=== PATIENT | male | born 1995 | race Caucasian/White ===

== ENCOUNTER → 2019-07-06 09:51 | Outpatient (BNVA) | payer BC, SELFPAY | PROVIDERS: Family Provider Family Medicine; PCP Nurse Practitioner; Visit Provider Social Worker | DX: F90.2 Attention-deficit hyperactivity disorder, combined type (principal) | CPT/HCPCS: 90791 ==

== ENCOUNTER → 2019-07-15 10:53 | Outpatient (BNVA) | payer BC, SELFPAY | PROVIDERS: Family Provider Family Medicine; Visit Provider Psychiatry & Neurology Psychiatry | DX: F41.9 Anxiety disorder, unspecified (principal); F90.2 Attention-deficit hyperactivity disorder, combined type; E66.9 Obesity, unspecified; F17.201 Nicotine dependence, unspecified, in remission; E63.9 Nutritional deficiency, unspecified | CPT/HCPCS: 99205 ==

== ENCOUNTER → 2019-08-16 07:43 | Outpatient (BNVA) | payer BC, SELFPAY | PROVIDERS: Family Provider Family Medicine; Visit Provider Nurse Practitioner Psychiatric/Mental Health | DX: F90.2 Attention-deficit hyperactivity disorder, combined type (principal); F41.9 Anxiety disorder, unspecified | CPT/HCPCS: 99212 ==

== ENCOUNTER → 2019-09-13 08:00 | Outpatient (BNVA) | payer BC, SELFPAY | PROVIDERS: Family Provider Family Medicine; Visit Provider Nurse Practitioner Psychiatric/Mental Health | DX: F90.2 Attention-deficit hyperactivity disorder, combined type (principal); F41.9 Anxiety disorder, unspecified; F25.0 Schizoaffective disorder, bipolar type | CPT/HCPCS: 99212 ==

== ENCOUNTER → 2021-01-15 16:15 | Outpatient (BNVA) | payer BC, SELFPAY | PROVIDERS: Family Provider Family Medicine; Visit Provider Nurse Practitioner Psychiatric/Mental Health | DX: Z03.89 Encounter for observation for other suspected diseases and conditions ruled out (principal) | CPT/HCPCS: 80053; 80307; 84439; 84443; 85025 ==